=== PATIENT | male | born 1965 | race African-American/Black ===

== ENCOUNTER 2017-08-31 02:30 | Emergency (ER) | payer MEDICAID ==
[~2017-08-31] VITALS: Ht 182.9 cm; Wt 115.0 kg
[2017-08-31 03:58] VITALS: BP 117/74
== END 2017-08-31 04:09 | disposition home or self-care (01) ==
LOC: EDBD 02:30 → ED 03:45
DX: M25.561 Pain in right knee (principal); M25.461 Effusion, right knee
CPT/HCPCS: 99284

== ENCOUNTER 2017-09-07 22:12 | Emergency (ER) | payer MEDICAID ==
[~2017-09-07] VITALS: Ht 190.5 cm; Wt 108.0 kg
[2017-09-07 23:16] VITALS: BP 126/86
== END 2017-09-07 23:17 | disposition home or self-care (01) ==
LOC: ED 22:32
DX: F15.151 Other stimulant abuse with stimulant-induced psychotic disorder with hallucinations (principal); Z72.89 Other problems related to lifestyle; F17.200 Nicotine dependence, unspecified, uncomplicated
CPT/HCPCS: 99284